=== PATIENT | male | born 1935 | race Caucasian/White ===

== ENCOUNTER 2020-09-24 10:23 | Emergency (ER) | payer MEDICARE ==
[~2020-09-24 10:23] MED LIST: ADVIL200 MG PO; ASCORBIC ACID500 MG PO; ASPIRIN CHEWABL81 MG PO; CELEXA20 MG PO; COREG 3.125M3.125 MG PO; COREG 6.25MG6.25 MG PO; DUONEB 2.5-0.5M1 AMP NEB; FEOSOL325 MG PO; GLUCOPHAGE850 MG PO; K-DUR20 MEQ PO; LASIX20 MG PO; METFORMIN HCL500 MG PO; MICRO-K10 MEQ PO; MUCINEX 600MG600 MG PO; NEURONTIN300 MG PO; NITROSTAT0.4 MG PO; PERCOCET 5/3251 TAB PO; PLAVIX75 MG PO; PRAVACHOL20 MG PO; PREDNISONE 10MG10 MG PO; PRILOSEC20 MG PO; PROAIR HFA8.5 GM INH; PROTONIX 40MG T40 MG PO; SINGULAIR10 MG PO; SYMBICORT 1601 PUFFS INH; SYMBICORT 80-10.2 GM INH; TESSALON PERLE100 MG PO; TRAMADOL HCL50 MG PO; VENTOLIN (2.5 MG/3 M INH; VITAMIN B-121000 MC1 SL; XANAX0.5 MG PO; ZESTRIL5 MG PO; ZOLOFT50 MG PO; ZOVIRAX200 MG PO; ZYRTEC10 MG PO
[2020-09-24 11:59] LABS: PRO-BNP 519 pg/mL (<450)
[2020-09-24 12:01] LABS: ALBUMIN 3.6 g/dL (3.4-5.0); BILIRUBIN - TOTAL 1.2 mg/dL (0.2-1.0); CREATININE 1.08 mg/dL (0.67-1.17); GLOBULIN (CALCULATION) 3.4 g/dL; POTASSIUM 3.9 mmol/L (3.5-5.1)
[2020-09-24 12:20] LABS: BASOPHIL 0.1 % (0-2); EOSINOPHIL 1.2 % (0-7); HCT 41.4 % (42.0-52.0); HGB 13.9 g/dl (13.2-18.0); LYMPHOCYTE 44.5 % (15-48); MCH 31.8 pg (25.0-31.0); MCHC 33.6 g/dL (32.0-36.0); MCV 94.7 fL (78.0-100.0); MONOCYTE 6.5 % (0-12); MPV 11.9 fL (6.0-9.5); NEUTROPHIL 47.3 % (41-80); NRBC 0; RBC 4.37 M/uL (4.70-6.00); RDW 13.1 % (11.5-14.0); WBC 6.9 K/uL (4.0-10.5)
[2020-09-24 12:25] LABS: PLT 106 K/uL (150-400)
[2020-09-24] MEDS ORDERED: NITROQUIK SL0.4 MG SL (15:12)
== END 2020-09-24 15:13 | disposition home or self-care (01) ==
LOC: FER 10:23
PROVIDERS: Emergency Medicine
DX: R07.89 Other chest pain (principal); R06.02 Shortness of breath; R05 Cough; J44.9 Chronic obstructive pulmonary disease, unspecified; Z20.822 Contact with and (suspected) exposure to COVID-19
CPT/HCPCS: 36415; 71045; 71275; 80053; 83880; 84484; 85025; 85379; 93005; J2930; Q9967; U0002

== ENCOUNTER 2022-02-03 09:12 | Emergency (ER) | payer MEDICARE ==
[~2022-02-03 09:12] MED LIST changes: +AZITHROMYCIN250 MG PO; +B12 ACTIVE1000 MCG PO; +BUMEX1 MG PO; +DESYREL50 MG PO; +DUONEB 2.5-0.5M1 AMP INH; +ELIQUIS5 MG PO; +FLOMAX0.4 MG PO; +LEXAPRO 10MG TA10 MG PO; +LOVAZA1 GM PO; +MEDROL 4MG DOSEP4 MG PO; +METFORMIN HCL500 M3 PO; +NITROQUIK SL0.4 MG SL; +PRAVASTATIN SOD20 MG PO; +PROAMATINE5 MG PO; +PROSCAR5 MG PO; +PROTONIX40 MG PO; +TAMIFLU 75MG CA75 MG PO; +TOPROL XL 25MG25 MG PO; +UROCIT-K10 MEQ PO
[2022-02-03 10:57] LABS: BASOPHIL 0.2 % (0-2); EOSINOPHIL 0.2 % (0-7); HCT 40.5 % (42.0-52.0); HGB 13.7 g/dl (13.2-18.0); LYMPHOCYTE 18.1 % (15-48); MCH 31.3 pg (25.0-31.0); MCHC 33.8 g/dL (32.0-36.0); MCV 92.5 fL (78.0-100.0); MONOCYTE 8.4 % (0-12); MPV 11.7 fL (6.0-9.5); NEUTROPHIL 72.7 % (41-80); NRBC 0; RBC 4.38 M/uL (4.70-6.00); RDW 13.3 % (11.5-14.0); WBC 5.4 K/uL (4.0-10.5)
[2022-02-03 10:59] LABS: CKMB 3.1 ng/mL (0.0-3.6)
[2022-02-03 11:41] LABS: PLT 146 K/uL (150-400)
== END 2022-02-03 12:00 | disposition home or self-care (01) ==
LOC: FER 09:12
PROVIDERS: Emergency Medicine
DX: J44.9 Chronic obstructive pulmonary disease, unspecified (principal)
CPT/HCPCS: 36415; 71046; 82553; 83880; 84484; 85025; 93005